=== PATIENT | male | born 1970 | race Caucasian/White ===

== ENCOUNTER 2018-08-22 07:17 | Emergency (ER) | payer OTHER ==
[~2018-08-22] VITALS: Ht 188 cm; Wt 128.1 kg
[2018-08-22 07:17] VITALS: BP 170/92
--- NOTE | 2018-08-22 07:36 | PHYS DOC ---
Adult General Chief Complaint Chief Complaint: INSECT BITE HPI HPI 47-year-old male presents with insect bite on his left dorsal hand. The patient states that he was seen in his recliner and reached down between the cushions yesterday afternoon and felt something bite him. He looked his hand and did not immediately see anything. Shortly while later, the patient noticed what looked like an insect bite nicole. He comes the ED today because he has had significant spreading of erythema around the area. The borders have been spreading and he is concerned for infection. The total area is now 4 cm in diameter. He has not noticed an abscess or fluctuant area. He denies fever or chills. He is not allergic to any antibiotics. He denies any other bites or concerns. Review of Systems Review of Systems Constitutional: Denies fever or chills [] Eyes: Denies change in visual acuity, redness, or eye pain [] HENT: Denies nasal congestion or sore throat [] Respiratory: Denies cough or shortness of breath [] Cardiovascular: No additional information not addressed in HPI [] GI: Denies abdominal pain, nausea, vomiting, bloody stools or diarrhea [] : Denies dysuria or hematuria [] Musculoskeletal: Denies back pain or joint pain [] Integument: Insect bite left hand[] Neurologic: Denies headache, focal weakness or sensory changes [] Endocrine: Denies polyuria or polydipsia [] All other systems were reviewed and found to be within normal limits, except as documented in this note. Allergies Allergies Allergies Coded Allergies Type Severity Reaction Last Updated Verified latex Allergy Unknown 08/22/18 Yes Physical Exam Physical Exam Constitutional: Well developed, well nourished, no acute distress, non-toxic appearance. [] HENT: Normocephalic, atraumatic, bilateral external ears normal, oropharynx moist, no oral exudates, nose normal. [] Eyes: PERRLA, EOMI, conjunctiva normal, no discharge. [] Neck: Normal range of motion, no tenderness, supple, no stridor. [] Cardiovascular:Heart rate regular rhythm, no murmur [] Lungs & Thorax: Bilateral breath sounds clear to auscultation [] Abdomen: Bowel sounds normal, soft, no tenderness, no masses, no pulsatile masses. [] Skin: 4 cm erythematous, warm area on the dorsum of the left hand. There is a small central area that is consistent with insect bite. No palpable abscess or area of fluctuance.[] Back: No tenderness, no CVA tenderness. [] Extremities: No tenderness, no cyanosis, no clubbing, ROM intact, no edema. [] Neurologic: Alert and oriented X 3, normal motor function, normal sensory function, no focal deficits noted. [] Psychologic: Affect normal, judgement normal, mood normal. [] EKG EKG [] Radiology/Procedures Radiology/Procedures [] Course & Med Decision Making Course & Med Decision Making Pertinent Labs and Imaging studies reviewed. (See chart for details) The patient's insect bite is concerning for infection. He has obvious erythema with warmth that is not present on the other hand. I will treat the patient with Keflex 1 g twice a day for 7 days. He is stable for discharge at this time. If his condition worsens such as the erythema spreading after being on the antibiotic, he will return to emergency room for consideration of IV antibiotics. [] Dragon Disclaimer Dragon Disclaimer This electronic medical record was generated, in whole or in part, using a voice recognition dictation system. Departure Departure: Referrals: PCP,REYNA (PCP) LARA RUFFIN DO Aug 22, 2018 07:36
[2018-08-22] MEDS ORDERED: CEPH-264 PO (07:41)
== END 2018-08-22 07:45 | disposition home or self-care (01) ==
LOC: ER 07:17
DX: S60.562A Insect bite (nonvenomous) of left hand, initial encounter (principal); L53.8 Other specified erythematous conditions; Z91.040 Latex allergy status; W57.XXXA Bitten or stung by nonvenomous insect and other nonvenomous arthropods, initial encounter; Y93.89 Activity, other specified; Y92.89 Other specified places as the place of occurrence of the external cause; Y99.8 Other external cause status
CPT/HCPCS: 99283

== ENCOUNTER 2018-12-28 23:01 | Emergency (ER) | payer SELFPAY ==
[~2018-12-28 23:01] MED LIST: CEPH-264 PO
--- NOTE | 2018-12-28 23:31 | ED.ADGEN ---
Past History Past Medical History: Hypertension Past Surgical History: No Surgical History Alcohol Use: None Drug Use: None Adult General Chief Complaint Chief Complaint ".. I got bad dental pain.. and now I think I got infection is some them.." HPI HPI Patient is a 48 year old male who presents with above hx and complaints of multiple dental caries with pain. Majority of painful dental caries are on the right upper and right lower teeth. Does have some findings of gingivitis. No trismus. Good bite. No neck adenopathy. No pointing abscess. Patient denies any history immunosuppression. Patient denies any history of travel or specific ill contacts. Patient tetanus is up-to-date. Patient does smoke. Patient has not followed up for a dental appointment as yet. No history of travel. No history of trauma. Review of Systems Review of Systems Constitutional: Denies fever or chills [] Eyes: Denies change in visual acuity, redness, or eye pain [] HENT: Denies nasal congestion or sore throat []complaints of dental pain Respiratory: Denies cough or shortness of breath [] Cardiovascular: No additional information not addressed in HPI [] GI: Denies abdominal pain, nausea, vomiting, bloody stools or diarrhea [] : Denies dysuria or hematuria [] Musculoskeletal: Denies back pain or joint pain [] Integument: Denies rash or skin lesions [] Neurologic: Denies headache, focal weakness or sensory changes [] Endocrine: Denies polyuria or polydipsia [] All other systems were reviewed and found to be within normal limits, except as documented in this note. Family History Family History Noncontributory Current Medications Current Medications Current Medications Medications (Trade) Dose Ordered Sig/Sharon Start Time Stop Time Status Last Admin Dose Admin Ceftriaxone Sodium (Rocephin Im) 1 gm 1X ONCE 12/28/18 23:45 12/28/18 23:46 DC 12/29/18 00:01 1 GM Clonidine HCl (Catapres Tts-2) 1 patch 1X ONCE 12/28/18 23:45 12/28/18 23:46 DC 12/29/18 00:02 1 PATCH Clonidine HCl (Catapres) 0.2 mg 1X ONCE 12/28/18 23:45 12/28/18 23:46 DC 12/29/18 00:05 0.2 MG Diphtheria/ Tetanus/Acell Pertussis (Boostrix) 0.5 ml ONCE ONCE 12/28/18 23:45 12/28/18 23:46 DC 12/29/18 00:07 0.5 ML Oxycodone/ Acetaminophen (Percocet 5/325) 2 tab 1X ONCE 12/28/18 23:45 12/28/18 23:46 DC 12/29/18 00:03 2 TAB Allergies Allergies Allergies Coded Allergies Type Severity Reaction Last Updated Verified latex Allergy Unknown 08/22/18 Yes Physical Exam Physical Exam Constitutional: In acute distress, non-toxic appearance. [] HENT: Normocephalic, atraumatic, bilateral external ears normal, oropharynx moist, no oral exudates, nose normal. []Multiple areas of dental decay and gingivitis Eyes: PERRLA, EOMI, conjunctiva normal, no discharge. [] Neck: Normal range of motion, no tenderness, supple, no stridor. [] Cardiovascular:Heart rate regular rhythm, no murmur [] Lungs & Thorax: Bilateral breath sounds equal apex with scattered wheezes auscultation [] Abdomen: Bowel sounds normal, soft, no tenderness, no masses, no pulsatile masses. Obese Skin: Warm, dry, no erythema, no rash. [] Back: No tenderness, no CVA tenderness. [] Extremities: No tenderness, no cyanosis, no clubbing, ROM intact, no edema. [] Neurologic: Alert and oriented X 3, normal motor function, normal sensory function, no focal deficits noted. [] Psychologic: Affect anxious, judgement normal, mood normal. [] Current Patient Data Vital Signs Vital Signs Date Time Temp Pulse Resp B/P (MAP) Pulse Ox O2 Delivery O2 Flow Rate FiO2 12/29/18 00:05 89 189/103 EKG EKG [] Radiology/Procedures Radiology/Procedures [] Course & Med Decision Making Course & Med Decision Making Pertinent Labs and Imaging studies reviewed. (See chart for details) Obstructive patient are meds will not fix his underlying problem. Must see a dentist. Take Tylenol and ibuprofen for pain. Start on Keflex 500x3 times a day. For severe pain may take Percocet up to 4 times a day. Patient encouraged him must follow-up with Dentist or oral surgeon. Encouraged patient to follow- up his elevated blood pressure with his primary. [] Final Impression Final Impression 1. Multiple Dental Caries 2. Gingivitis 3. Accelerated HTN- may elevated b/c dental pain and Pt has not taken his BP meds tonight Dragon Disclaimer Dragon Disclaimer This electronic medical record was generated, in whole or in part, using a voice recognition dictation system. Dragon Disclaimer This chart was dictated in whole or in part using Voice Recognition software in a busy, high-work load, and often noisy Emergency Department environment. It may contain unintended and wholly unrecognized errors or omissions. Dragon Disclaimer This chart was dictated in whole or in part using Voice Recognition software in a busy, high-work load, and often noisy Emergency Department environment. It may contain unintended and wholly unrecognized errors or omissions. Discharge Summary Visit Information Final Diagnosis Problems Medical Problems: (1) Hypertension Status: Acute (2) Pain due to dental caries Status: Acute Brief Hospital Course Allergies Allergies Coded Allergies Type Severity Reaction Last Updated Verified latex Allergy Unknown 08/22/18 Yes Vital Signs Vital Signs Date Time Temp Pulse Resp B/P (MAP) Pulse Ox O2 Delivery O2 Flow Rate FiO2 12/29/18 00:05 89 189/103 Brief Hospital Course Mr. Avila is a 48 old male who presented with dental pain. Discharge Information Condition at Discharge: Improved, Stable Disposition/Orders: D/C to Home Dischare Medications Current Medications Ceftriaxone Sodium (Rocephin Im) 1 gm 1X ONCE IM Last administered on at 00:01; Admin Dose 1 GM; Start 12/28/18 at 23:45; Stop 12/28/18 at 23:46; Status DC Diphtheria/ Tetanus/Acell Pertussis (Boostrix) 0.5 ml ONCE ONCE VAX IM Last administered on 12/29/18at 00:07; Admin Dose 0.5 ML; Start 12/28/18 at 23:45; Stop 12/28/18 at 23:46; Status DC Clonidine HCl (Catapres Tts-2) 1 patch 1X ONCE TD Last administered on at 00:02; Admin Dose 1 PATCH; Start 12/28/18 at 23:45; Stop 12/28/18 at 23:46; Status DC Clonidine HCl (Catapres) 0.2 mg 1X ONCE PO Last administered on 12/29/18at 00:05 ; Admin Dose 0.2 MG; Start 12/28/18 at 23:45; Stop 12/28/18 at 23:46; Status DC Oxycodone/ Acetaminophen (Percocet 5/325) 2 tab 1X ONCE PO Last administered on 12/29/18at 00:03; Admin Dose 2 TAB; Start 12/28/18 at 23:45; Stop 12/28/18 at 23: 46; Status DC Active Scripts Active Percocet 5-325 Mg Tablet (Oxycodone Hcl/Acetaminophen) 1 Each Tablet 1 Tab PO PRN Q6HRS PRN Keflex (Cephalexin) 500 Mg Capsule 500 Mg PO TID 14 Days Keflex (Cephalexin) 500 Mg Capsule 2 Cap PO BID 7 Days Discharge Summary Visit Information Final Diagnosis Problems Medical Problems: (1) Hypertension Status: Acute (2) Pain due to dental caries Status: Acute Brief Hospital Course Allergies Allergies Coded Allergies Type Severity Reaction Last Updated Verified latex Allergy Unknown 08/22/18 Yes Vital Signs Vital Signs Date Time Temp Pulse Resp B/P (MAP) Pulse Ox O2 Delivery O2 Flow Rate FiO2 12/29/18 00:05 89 189/103 Brief Hospital Course Mr. Avila is a 48 old [sex] who presented with [ ] Discharge Information Dischare Medications Current Medications Ceftriaxone Sodium (Rocephin Im) 1 gm 1X ONCE IM Last administered on at 00:01; Admin Dose 1 GM; Start 12/28/18 at 23:45; Stop 12/28/18 at 23:46; Status DC Diphtheria/ Tetanus/Acell Pertussis (Boostrix) 0.5 ml ONCE ONCE VAX IM Last administered on 12/29/18at 00:07; Admin Dose 0.5 ML; Start 12/28/18 at 23:45; Stop 12/28/18 at 23:46; Status DC Clonidine HCl (Catapres Tts-2) 1 patch 1X ONCE TD Last administered on at 00:02; Admin Dose 1 PATCH; Start 12/28/18 at 23:45; Stop 12/28/18 at 23:46; Status DC Clonidine HCl (Catapres) 0.2 mg 1X ONCE PO Last administered on 12/29/18at 00:05 ; Admin Dose 0.2 MG; Start 12/28/18 at 23:45; Stop 12/28/18 at 23:46; Status DC Oxycodone/ Acetaminophen (Percocet 5/325) 2 tab 1X ONCE PO Last administered on 12/29/18at 00:03; Admin Dose 2 TAB; Start 12/28/18 at 23:45; Stop 12/28/18 at 23: 46; Status DC Active Scripts Active Percocet 5-325 Mg Tablet (Oxycodone Hcl/Acetaminophen) 1 Each Tablet 1 Tab PO PRN Q6HRS PRN Keflex (Cephalexin) 500 Mg Capsule 500 Mg PO TID 14 Days Keflex (Cephalexin) 500 Mg Capsule 2 Cap PO BID 7 Days Discharge Summary Visit Information Final Diagnosis Problems Medical Problems: (1) Hypertension Status: Acute (2) Pain due to dental caries Status: Acute Brief Hospital Course Allergies Allergies Coded Allergies Type Severity Reaction Last Updated Verified latex Allergy Unknown 08/22/18 Yes Vital Signs Vital Signs Date Time Temp Pulse Resp B/P (MAP) Pulse Ox O2 Delivery O2 Flow Rate FiO2 12/29/18 00:05 89 189/103 Brief Hospital Course Mr. Avila is a 48 old [sex] who presented with [ ] Discharge Information Dischare Medications Current Medications Ceftriaxone Sodium (Rocephin Im) 1 gm 1X ONCE IM Last administered on at 00:01; Admin Dose 1 GM; Start 12/28/18 at 23:45; Stop 12/28/18 at 23:46; Status DC Diphtheria/ Tetanus/Acell Pertussis (Boostrix) 0.5 ml ONCE ONCE VAX IM Last administered on 12/29/18at 00:07; Admin Dose 0.5 ML; Start 12/28/18 at 23:45; Stop 12/28/18 at 23:46; Status DC Clonidine HCl (Catapres Tts-2) 1 patch 1X ONCE TD Last administered on at 00:02; Admin Dose 1 PATCH; Start 12/28/18 at 23:45; Stop 12/28/18 at 23:46; Status DC Clonidine HCl (Catapres) 0.2 mg 1X ONCE PO Last administered on 12/29/18at 00:05 ; Admin Dose 0.2 MG; Start 12/28/18 at 23:45; Stop 12/28/18 at 23:46; Status DC Oxycodone/ Acetaminophen (Percocet 5/325) 2 tab 1X ONCE PO Last administered on 12/29/18at 00:03; Admin Dose 2 TAB; Start 12/28/18 at 23:45; Stop 12/28/18 at 23: 46; Status DC Active Scripts Active Percocet 5-325 Mg Tablet (Oxycodone Hcl/Acetaminophen) 1 Each Tablet 1 Tab PO PRN Q6HRS PRN Keflex (Cephalexin) 500 Mg Capsule 500 Mg PO TID 14 Days Keflex (Cephalexin) 500 Mg Capsule 2 Cap PO BID 7 Days GABRIELA FERRER MD Dec 28, 2018 23:31
[2018-12-28] MEDS ORDERED: OXYC1TAB15 PO (23:41)
[2018-12-28] MEDS ORDERED: CEPH-264 PO (23:41)
[2018-12-28] MEDS ORDERED: cloNIDine TTS-2 1 PATCH PATCH TD ONE (23:45)
[2018-12-28] MEDS ORDERED: DIPHTH,PERTUSS(ACELL),TET TOX 0.5 ML DISP.SYRIN. VAX IM ONE (23:45)
[2018-12-28] MEDS ORDERED: cloNIDine HCL 0.1 MG TABLET PO ONE (23:45)
[2018-12-28] MEDS ORDERED: oxyCODONE/APAP 5/325 1 TAB TABLET PO ONE (23:45)
[2018-12-28] MEDS ORDERED: cefTRIAXone IM 1 GM VIAL IM ONE (23:45)
[2018-12-29 00:05] VITALS: BP 189/103
== END 2018-12-29 00:41 | disposition home or self-care (01) ==
LOC: ER 23:01
DX: K02.9 Dental caries, unspecified (principal); K05.10 Chronic gingivitis, plaque induced; I10 Essential (primary) hypertension; Z91.040 Latex allergy status
CPT/HCPCS: 90471; 90715; 96372; 99284; J0696

== ENCOUNTER 2019-01-08 10:57 | Emergency (ER) | payer OTHER ==
[~2019-01-08] VITALS: Ht 190.5 cm; Wt 136.1 kg
[~2019-01-08 10:57] MED LIST changes: +LISINOPRIL 10 MG TABLET PO ONE; +OXYC1TAB15 PO
[2019-01-08] MEDS ORDERED: ASPIRIN 81 MG TAB.CHEW PO ONE (11:15)
--- NOTE | 2019-01-08 11:43 | RAD ---
Single view of the chest. 01/08/2019 11:11 AM Indication: anxiety, nausea, chest pain Comparison: None Findings: Exam limited by body habitus. No definitive focal consolidation or infiltrate is seen. No pneumothorax or pleural effusion is identified. Heart size appears to be normal. IMPRESSION: Limited study without evidence of acute cardiopulmonary process. Electronically signed by: Dameon Suggs MD (01/08/2019 11:41 AM) [facility]
[2019-01-08 11:50] LABS: ALBUMIN 3.7 g/dL (3.4-5.0); CALCIUM 8.8 mg/dL (8.5-10.1); CREATININE 0.7 mg/dL (0.7-1.3); GFR 120.4; POTASSIUM 4.2 mmol/L (3.5-5.1); TOTAL BILIRUBIN 0.5 mg/dL (0.2-1.0); TOTAL PROTEIN 7.4 g/dL (6.4-8.2)
[2019-01-08 11:56] LABS: BASO % 0 % (0-3); EOS # 0.2 x10^3/uL (0.0-0.7); EOS % 2 % (0-3); HEMATOCRIT 42.8 % (39.0-53.0); LYMPH # 2.1 x10^3/uL (1.0-4.8); LYMPH % 25 % (24-48); MEAN CORPUSCULAR HEMOGLOBIN 32 pg (25-35); MEAN CORPUSCULAR HGB CONC 35 g/dL (31-37); MEAN CORPUSCULAR VOLUME 90 fL (79-100); MONO # 0.8 x10^3/uL (0.0-1.1); MONO % 9 % (0-9); NEUT # 5.6 x10^3uL (1.8-7.7); NEUT % 64 % (31-73); PLATELET COUNT 197 x10^3/uL (140-400); RED BLOOD COUNT 4.75 x10^6/uL (4.30-5.70); RED CELL DISTRIBUTION WIDTH 13.1 % (11.5-14.5); WHITE BLOOD COUNT 8.7 x10^3/uL (4.0-11.0)
--- NOTE | 2019-01-08 12:03 | PHYS DOC ---
Past History Past Medical History: GERD, Hypertension, Other Past Surgical History: Other Alcohol Use: None Drug Use: None, Opiates Social History Narrative: last dose percocet 01/06 PM Adult General Chief Complaint Chief Complaint: CHEST PAIN HPI HPI 48-year-old male presents with elevated blood pressure and chest pain. The patient has noticed intermittent chest pressure discomfort worse with exertion last few weeks. He does get diaphoretic and short of breath with this pain. It resolves with rest. The patient has been told in the past he has hypertension. He has not been taking medication for this for about 2 years. He was seen recently at this facility for another complaint and also had high blood pressure. He tells me at home with his high as 225 systolic. He tells me he is concerned about this at this point. He has never had a stress test or cardiac catheter. He has a 30+ year smoking history. He is not diabetic. Denies fever or chills. Review of Systems Review of Systems Constitutional: Denies fever or chills [] Eyes: Denies change in visual acuity, redness, or eye pain [] HENT: Denies nasal congestion or sore throat [] Respiratory: shortness of breath [] Cardiovascular: No additional information not addressed in HPI [] GI: Denies abdominal pain, nausea, vomiting, bloody stools or diarrhea [] : Denies dysuria or hematuria [] Musculoskeletal: Denies back pain or joint pain [] Integument: Denies rash or skin lesions [] Neurologic: Denies headache, focal weakness or sensory changes [] Endocrine: Denies polyuria or polydipsia [] All other systems were reviewed and found to be within normal limits, except as documented in this note. Current Medications Current Medications Current Medications Medications (Trade) Dose Ordered Sig/[facility] Start Time Stop Time Status Last Admin Dose Admin Aspirin (Children'S Aspirin) 324 mg 1X ONCE 01/08/19 11:15 01/08/19 11:16 DC 01/08/19 11:24 324 MG Allergies Allergies Allergies Coded Allergies Type Severity Reaction Last Updated Verified ibuprofen Allergy Intermediate hives 01/08/19 Yes latex Allergy Intermediate hives 01/08/19 Yes Physical Exam Physical Exam Constitutional: Well developed, well nourished, no acute distress, non-toxic appearance. [] HENT: Normocephalic, atraumatic, bilateral external ears normal, oropharynx moist, no oral exudates, nose normal. [] Eyes: PERRLA, EOMI, conjunctiva normal, no discharge. [] Neck: Normal range of motion, no tenderness, supple, no stridor. [] Cardiovascular:Heart rate regular rhythm, no murmur [] Lungs & Thorax: Bilateral breath sounds clear to auscultation [] Abdomen: Bowel sounds normal, soft, no tenderness, no masses, no pulsatile masses. [] Skin: Warm, dry, no erythema, no rash. [] Back: No tenderness, no CVA tenderness. [] Extremities: No tenderness, no cyanosis, no clubbing, ROM intact, no edema. [] Neurologic: Alert and oriented X 3, normal motor function, normal sensory function, no focal deficits noted. [] Psychologic: Affect normal, judgement normal, mood anxious. [] Current Patient Data Vital Signs Vital Signs Date Time Temp Pulse Resp B/P (MAP) Pulse Ox O2 Delivery O2 Flow Rate FiO2 01/08/19 11:00 98.1 71 20 98 Room Air Lab Results Laboratory Tests Test 01/08/19 11:14 Sodium Level 144 mmol/L (136-145) Potassium Level 4.2 mmol/L (3.5-5.1) Chloride Level 107 mmol/L (98-107) Carbon Dioxide Level 26 mmol/L (21-32) Anion Gap 11 (6-14) Blood Urea Nitrogen 17 mg/dL (8-26) Creatinine 0.7 mg/dL (0.7-1.3) Estimated GFR (Cockcroft-Gault) 120.4 BUN/Creatinine Ratio 24 (6-20) H Glucose Level 92 mg/dL (70-99) Calcium Level 8.8 mg/dL (8.5-10.1) Total Bilirubin 0.5 mg/dL (0.2-1.0) Aspartate Amino Transferase (AST) 27 U/L (15-37) Alanine Aminotransferase (ALT) 27 U/L (16-63) Alkaline Phosphatase 108 U/L (46-116) Total Protein 7.4 g/dL (6.4-8.2) Albumin 3.7 g/dL (3.4-5.0) Albumin/Globulin Ratio 1.0 (1.0-1.7) EKG EKG Sinus rhythm, rate 69, normal axis, no ST elevation or depression.[] Radiology/Procedures Radiology/Procedures [] Impressions: Single view of the chest. 01/08/2019 11:11 AM Indication: anxiety, nausea, chest pain Comparison: None Findings: Exam limited by body habitus. No definitive focal consolidation or infiltrate is seen. No pneumothorax or pleural effusion is identified. Heart size appears to be normal. IMPRESSION: Limited study without evidence of acute cardiopulmonary process. Electronically signed by: Dameon Arana MD (01/08/2019 11:41 AM) [facility] DICTATED AND SIGNED BY: DAMEON ARANA MD DATE: 01/08/19 1140 CC: LARA RUFFIN DO; PCP,NO Course & Med Decision Making Course & Med Decision Making Pertinent Labs and Imaging studies reviewed. (See chart for details) HEART score is 4. The patient's labs are unremarkable. His troponin is negative. His EKG has no acute ST elevations. I have given the patient 10 mg of lisinopril and 0.2 of clonidine for his hypertension. Believe the patient should be admitted for chest pain rule out. Discussed this with the patient and he has refused to be admitted. He is signing out AMA. I will give him a prescription for Lisinopril so that he at least something for his blood pressure. I have advised him that if he begins to feel that pain again or has any other symptoms, he should return to the hospital. [] Dragon Disclaimer Dragon Disclaimer This electronic medical record was generated, in whole or in part, using a voice recognition dictation system. Departure Departure: Impression: Primary Impression: Chest pain Additional Impression: Hypertension Disposition: 07 AGAINST MEDICAL ADVICE Condition: GUARDED Referrals: PCP,NO (PCP) Scripts Lisinopril (LISINOPRIL) 10 Mg Tablet 1 TAB PO DAILY for Hypertension, #30 TAB 0 Refills Prov: LARA RUFFIN DO 01/08/19 Problem Qualifiers Primary Impression: Chest pain Chest pain type: precordial pain Qualified Codes: R07.2 - Precordial pain Additional Impression: Hypertension Hypertension type: essential hypertension Qualified Codes: I10 - Essential ( primary) hypertension LARA RUFFIN DO Jan 08, 2019 12:03
[2019-01-08] MEDS ORDERED: cloNIDine HCL 0.1 MG TABLET PO ONE (12:15)
[2019-01-08] MEDS ORDERED: LISI10TA2 PO (12:28)
[2019-01-08 12:31] VITALS: BP 180/95
[2019-01-08] MEDS ORDERED: cloNIDine TTS-1 1 PATCH PATCH TD SCH (13:00)
--- NOTE | 2019-01-08 17:34 | EKG ---
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
== END 2019-01-08 12:55 | disposition left against medical advice (07) ==
LOC: ER 10:57
DX: I10 Essential (primary) hypertension (principal); R07.2 Precordial pain; K21.9 Gastro-esophageal reflux disease without esophagitis; Z87.891 Personal history of nicotine dependence; Z88.6 Allergy status to analgesic agent; Z91.040 Latex allergy status
CPT/HCPCS: 36415; 71045; 80053; 84484; 85025; 93005; 99284

== ENCOUNTER 2020-07-12 15:49 | Emergency (ER) | payer OTHER ==
[~2020-07-12] VITALS: Ht 190.5 cm; Wt 128.1 kg
[~2020-07-12 15:49] MED LIST changes: +LISI10TA2 PO; -LISINOPRIL 10 MG TABLET PO ONE
[2020-07-12 16:01] VITALS: BP 153/119
--- NOTE | 2020-07-12 16:05 | PHYS DOC ---
Past History Past Medical History: GERD, Hypertension, Other Past Surgical History: Other Alcohol Use: None Drug Use: None, Opiates General Adult EDM: Chief Complaint: CHEST PAIN HPI: HPI: 49-year-old male with significant history of hypertension, who presents for evaluation of chest pressure and dyspnea. Associated with "tunnel vision", nausea, and anxiety. He reports similar episode yesterday, and has had multiple intermittent episodes today. Saw his primary doctor this morning, prescribed Wellbutrin for suspected anxiety. Has not yet taken this medication. Review of records show negative nuclear stress test performed 09/2019. Review of Systems: Review of Systems: Gen: No fever, chills. Eyes: No blurred vision, diplopia. ENT: No nasal congestion, sore throat. CV: No palpitations. Reports chest pressure. Resp. No cough. Reports dyspnea. GI: No abd pain, vomiting. Reports nausea. : No dysuria, hematuria. Neuro: No ELDRIDGE, weakness. Reports lightheadedness. MSK: No myalgia, arthralgia, back pain. Skin: No acute rash or lesion. Heart Score: HEART Score for Chest Pain: HEART Score for Chest Pain Response (Comments) Value History Slighlty/Non-Suspicious 0 ECG Normal 0 Age >45 - < 65 1 Risk Factors >3 Risk Factors or Hx CAD 2 Troponin < Normal Limit 0 Total 3 Risk Factors: Risk Factors: DM, Current or recent (<one month) smoker, HTN, HLP, family history of CAD, obesity. Risk Scores: Score 0 - 3: 2.5% MACE over next 6 weeks - Discharge Home Score 4 - 6: 20.3% MACE over next 6 weeks - Admit for Clinical Observation Score 7 - 10: 72.7% MACE over next 6 weeks - Early Invasive Strategies Allergies: Allergies: Allergies Coded Allergies Type Severity Reaction Last Updated Verified ibuprofen Allergy Intermediate hives 01/08/19 Yes latex Allergy Intermediate hives 01/08/19 Yes Physical Exam: PE: Gen: NAD. Well nourished. Head: NC/AT. Eyes: No scleral icterus. No conjunctival injection. PERRL. ENT: MMM. Posterior OP clear. Neck: Supple. NT. No JVD. CV: RRR. Peripheral pulses intact. Resp: CTAB. No increased work of breathing. Abd: Soft. NT. ND. MSK: No peripheral cyanosis. No edema. No calf tenderness or asymmetry. Neuro: A&Ox3. Strength & sensation grossly intact throughout. No dysmetria. No aphasia or dysarthria. No visual field cut. No facial asymmetry. NIH stroke score 0. Skin. Warm. Dry. No acute rash. Psych: Appropriate mood & affect. EKG: EKG: EKG at 1552. Sinus rhythm. Heart rate 89. Occasional PVC. No STEMI. Interpreted by me. Radiology/Procedures: Radiology/Procedures: PROCEDURE: CHEST AP ONLY Single view of the chest. 07/12/2020 3:56 PM Indication: Reason: CP / Spl. Instructions: / History: Comparison: Chest radiograph January 08, 2009 Findings: There is no focal consolidation. There is no pleural effusion or pneumothorax. There is borderline cardiomegaly. No acute osseous abnormalities are seen. Impression: 1.No evidence of acute cardiopulmonary process. 2. Borderline cardiomegaly Electronically signed by: Dameon Suggs MD (07/12/2020 4:22 PM) [id number] Course & Med Decision Making: Course & Med Decision Making Pertinent Labs and Imaging studies reviewed. (See chart for details) In summary, 49M p/w CP/SOA over last day or so. Neg nuc stress 09/2019. HDS. Unremarkable exam. CXR clear. Labs unremarkable including normal trop/BNP. Remains well appearing and nontoxic. I considered but do not suspect ACS, PE, d issection. HEART score 3, suitable for outpatient F/U. Will DC home with cards F/U. Return precautions given. Advised starting his Rx wellbutrin by PMD. Tyler Disclaimer: Tyler Disclaimer: This electronic medical record was generated, in whole or in part, using a voice recognition dictation system. Departure Departure: Impression: Primary Impression: Chest pain Disposition: HOME/RESIDENCE PRIOR TO ADM Condition: STABLE Referrals: KATTY DOBBS (PCP) Patient Instructions: Chest Pain (Nonspecific)-Brief Additional Instructions: Your cardiac workup in the ED today was unremarkable. Please follow up with cardiology for continued outpatient workup. Start taking your previously prescribed wellbutrin. Return to the ED if you develop new or worsening symptoms. Justification of Admission: Justification of Admission: Justification of Admission Dx: N/A DONELL DOUGLAS DO Jul 12, 2020 16:05
[2020-07-12] MEDS ORDERED: diazePAM 2 MG TABLET. PO ONE (16:15)
--- NOTE | 2020-07-12 16:24 | RAD ---
Single view of the chest. 07/12/2020 3:56 PM Indication: Reason: CP / Spl. Instructions: / History: Comparison: Chest radiograph January 08, 2009 Findings: There is no focal consolidation. There is no pleural effusion or pneumothorax. There is borderline cardiomegaly. No acute osseous abnormalities are seen. Impression: 1.No evidence of acute cardiopulmonary process. 2. Borderline cardiomegaly Electronically signed by: Dameon Suggs MD (07/12/2020 4:22 PM) [id number]
[2020-07-12 16:27] LABS: BASO % 1 % (0-3); EOS # 0.1 x10^3/uL (0.0-0.7); EOS % 2 % (0-3); HEMOGLOBIN 14.2 g/dL (13.0-17.5); LYMPH # 2.3 x10^3/uL (1.0-4.8); LYMPH % 25 % (24-48); MEAN CORPUSCULAR HEMOGLOBIN 32 pg (25-35); MEAN CORPUSCULAR HGB CONC 35 g/dL (31-37); MEAN CORPUSCULAR VOLUME 94 fL (79-100); MONO # 0.8 x10^3/uL (0.0-1.1); MONO % 9 % (0-9); NEUT # 5.8 x10^3uL (1.8-7.7); NEUT % 64 % (31-73); PLATELET COUNT 157 x10^3/uL (140-400); RED BLOOD COUNT 4.39 x10^6/uL (4.30-5.70); RED CELL DISTRIBUTION WIDTH 13.4 % (11.5-14.5); WHITE BLOOD COUNT 9.1 x10^3/uL (4.0-11.0)
[2020-07-12 16:30] LABS: CALCIUM 8.7 mg/dL (8.5-10.1); CREATININE 1.1 mg/dL (0.7-1.3); GFR 71.1; POTASSIUM 3.7 mmol/L (3.5-5.1)
[2020-07-12 16:42] LABS: ALBUMIN 3.5 g/dL (3.4-5.0); ALBUMIN/GLOBULIN RATIO 0.9 (1.0-1.7); MAGNESIUM 1.8 mg/dL (1.8-2.4); TOTAL BILIRUBIN 0.2 mg/dL (0.2-1.0); TOTAL PROTEIN 7.3 g/dL (6.4-8.2)
--- NOTE | 2020-07-12 16:46 | EKG ---
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
== END 2020-07-12 16:58 | disposition home or self-care (01) ==
LOC: ER 15:49
DX: R07.89 Other chest pain (principal); I10 Essential (primary) hypertension; K21.9 Gastro-esophageal reflux disease without esophagitis; F41.9 Anxiety disorder, unspecified; Z88.6 Allergy status to analgesic agent; Z91.040 Latex allergy status
CPT/HCPCS: 36415; 71045; 80053; 83735; 83880; 84484; 85025; 93005; 99285-25

== ENCOUNTER 2021-05-22 00:25 | Emergency (ER) | payer OTHER ==
[~2021-05-22] VITALS: Ht 188 cm; Wt 147.7 kg
[~2021-05-22 00:25] MED LIST changes: +LISI10TA16 PO; -LISI10TA2 PO
--- NOTE | 2021-05-22 01:02 | PHYS DOC ---
Past History Past Medical History: GERD, Hypertension, Other Past Surgical History: No Surgical History Alcohol Use: None Drug Use: None, Opiates Adult General Chief Complaint Chief Complaint: COUGH HPI HPI Patient is a 50-year-old male who presents with a chief complaint of nasal congestion and cough that has come on over the last week. Denies any recent traumas, travels, known ill contacts, fevers, chest pain, shortness of breath, abdominal pain, nausea, vomiting, dysuria, hematuria, blood in the stool or diarrhea. Denies any dyspnea on exertion, orthopnea, PND or edema. States she is trying some [id number] medicines with minimal relief. States he has not seen his primary care physician yet. States he is able to eat and drink without issue. States he is making urine and stool without issue. Review of Systems Review of Systems Review of systems otherwise unremarkable except noted in HPI Allergies Allergies Allergies Coded Allergies Type Severity Reaction Last Updated Verified ibuprofen Allergy Intermediate hives 01/08/19 Yes latex Allergy Intermediate hives 01/08/19 Yes Physical Exam Physical Exam Constitutional: Well developed, well nourished, no acute distress, non-toxic appearance. [] HENT: Normocephalic, atraumatic, oropharynx moist, no oral exudates, Eyes: conjunctiva normal, no discharge. [] Neck: Normal range of motion, no tenderness, supple, no stridor, no lymphadenopathy. [] Cardiovascular:Heart rate regular rhythm, no murmur [] Lungs & Thorax: Mild bilateral global rhonchi Skin: Warm, dry, no erythema, no rash. [] Extremities: No tenderness, ROM intact, no edema. [] Neurologic: Alert and oriented X 3, n no focal deficits noted. [] Psychologic: Affect normal, judgement normal, mood normal. [] Current Patient Data Vital Signs Vital Signs Date Time Temp Pulse Resp B/P (MAP) Pulse Ox O2 Delivery O2 Flow Rate FiO2 05/22/21 00:30 98.1 78 16 168/89 (115) 96 Room Air EKG EKG [] Radiology/Procedures Radiology/Procedures Imaging with no obvious acute consolidation [] Heart Score C/O Chest Pain: No Risk Factors: Risk Factors: DM, Current or recent (<one month) smoker, HTN, HLP, family history of CAD, obesity. Risk Scores: Risk Factors: DM, Current or recent (<one month) smoker, HTN, HLP, family history of CAD, obesity. Course & Med Decision Making Course & Med Decision Making Patient is a 50-year-old male presents with cough and nasal congestion Vital signs notable for hypertension. Physical exam noted above. Given dexamethasone, doxycycline and breathing treatment for COPD exacerbation Given cough syrup for the emergency department. Discussed all findings with patient and COPD exacerbations. Patient stated that he quit smoking a week ago and has not had 1 since because he is tired of the cough and the mucus. Advised to follow-up in the morning with his primary care physician. Patient stated he should have told his PCP about it few days ago when he was there. Gave strict return precautions to the ED. Patient grateful, verbalized understanding and agreed with plan of discharge. [] Dragon Disclaimer Dragon Disclaimer This electronic medical record was generated, in whole or in part, using a voice recognition dictation system. Departure Departure: Impression: Primary Impression: Cough Additional Impressions: Nasal congestion COPD exacerbation Disposition: HOME / SELF CARE / HOMELESS Condition: GOOD Referrals: KATTY DOBBS (PCP) Patient Instructions: Chronic Obstructive Pulmonary Disease, Chronic Obstructive Pulmonary Disease Exacerbation, Pneumomediastinum Additional Instructions: Thank you for coming into the emergency department tonight and allowing us to take care of you. Please read all of the attached information very closely to go back over what we discussed. Please take your antibiotics as prescribed and until gone. Please use your albuterol inhaler as prescribed. Please call your primary care physician first thing in the morning to update on ED visit and set up a follow-up within the next week or so. Please come back to the emergency department immediately with new or concerning symptoms as discussed. Scripts Doxycycline Hyclate (DOXYCYCLINE HYCLATE) 100 Mg Tablet 1 TAB PO BID for copd exacerbation, #13 TAB Prov: HEYDI GILL MD 05/22/21 Albuterol Sulfate (PROAIR HFA INHALER) 8.5 Gm Hfa.aer.ad 2 PUFF IH PRN Q4-6HRS PRN for wheezing for 21 Days, #1 INHALER 0 Refills Prov: HEYDI GILL MD 05/22/21 Problem Qualifiers HEYDI GILL MD May 22, 2021 01:02
[2021-05-22] MEDS ORDERED: DEXAMETHASONE 4 MG TABLET PO ONE (01:15)
[2021-05-22] MEDS ORDERED: IPRATRPIUM/ALBUTEROL 0.5/2.5MG 3 ML NEBU. NEB ONE (01:15)
[2021-05-22] MEDS ORDERED: ALBU2.5V8 IH (01:15)
[2021-05-22] MEDS ORDERED: DOXYCYCLINE HYCLATE 100 MG TABLET PO ONE (01:15)
[2021-05-22] MEDS ORDERED: DOXY100T PO (01:15)
[2021-05-22] MEDS ORDERED: guaiFENesin/CODEINE 100mg/10mg 5 ML LIQUID PO PRN (01:15)
--- NOTE | 2021-05-22 01:18 | RAD ---
XR CHEST 2V INDICATION: Reason: chest congestion / Spl. Instructions: / History: . COMPARISON STUDY: None. FINDINGS: Lungs: Normal lung volume. No pulmonary mass or consolidation. The tracheobronchial tree and hilar st ructures are normal. Pleura: No pleural effusion or pneumothorax. Heart and Mediastinum: The cardiomediastinal silhouette is normal. The great vessels of the thorax ar e normal. Bones and Soft Tissues: Degenerative changes of the spine. IMPRESSION: No acute cardiopulmonary process. Electronically signed by: Elmer Soriano MD (05/22/2021 1:16 AM) [facility]
[2021-05-22 01:44] VITALS: BP 154/71
== END 2021-05-22 01:50 | disposition home or self-care (01) ==
LOC: ER 00:25
DX: J44.1 Chronic obstructive pulmonary disease with (acute) exacerbation (principal); K21.9 Gastro-esophageal reflux disease without esophagitis; I10 Essential (primary) hypertension; Z88.6 Allergy status to analgesic agent; Z91.040 Latex allergy status
CPT/HCPCS: 71046; 94640; 99284; J8540

== ENCOUNTER → 2021-07-03 | Outpatient (CLI) | payer OTHER ==
[~2021-07-03] MED LIST changes: +ALBU2.5V8 IH; +DOXY100T PO
--- NOTE | 2021-07-03 09:04 | RAD ---
EXAM: LUMBAR SPINE 3 VIEWS. HISTORY: Low back pain and left lower extremity radiculopathy. COMPARISON: None. FINDINGS: There is 4 mm retrolisthesis at L2-3. There is minimal grade 1 anterolisthesis at L4-5. Portillo tebral body heights are maintained, and no fractures are identified. Degenerative disc disease is mil d at and L2-3 and L4-5. Facet osteoarthritis is moderate to severe from L4 through S1. Calculi in the right renal lower pole measure up to 6 mm. Atherosclerotic calcifications are noted. IMPRESSION: 1. Mild retrolisthesis at L2-3. Slight anterolisthesis at L4-5. Mild degenerative disc disease at eac h level. 2. Right lower pole renal calculi measure up to 6 mm. Electronically signed by: Bev Ding MD (07/03/2021 9:01 AM) [id number]
== END ==
LOC: RAD 07:41
PROVIDERS: ATTEND Family Medicine
DX: M43.16 Spondylolisthesis, lumbar region (principal); M51.16 Intervertebral disc disorders with radiculopathy, lumbar region; M47.817 Spondylosis without myelopathy or radiculopathy, lumbosacral region; N20.0 Calculus of kidney; I70.90 Unspecified atherosclerosis; M54.5 Low back pain; Z68.41 Body mass index [BMI] 40.0-44.9, adult
CPT/HCPCS: 72100

== ENCOUNTER 2021-11-15 05:18 | Emergency (ER) | payer OTHER ==
[~2021-11-15] VITALS: Ht 188 cm; Wt 147.7 kg
[2021-11-15 05:18] VITALS: BP 153/72
--- NOTE | 2021-11-15 05:22 | PHYS DOC ---
Past History Past Medical History: GERD, Hypertension, Other (GABRIELA FERRER MD) Past Surgical History: No Surgical History (GABRIELA FERRER MD) Alcohol Use: None Drug Use: None, Opiates (GABRIELA FERRER MD) General Adult HPI: HPI: ".. 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 And was looking over my right shoulder when it felt like a pop my neck... Since then is is gotten more and more stiff and I cannot turn my head or move my arms without spasms in my neck. I could not even work tonight at [facility] [employer]" Patient is a 50 year old male who presents with above hx and complaints rt. neck pain . Patient reports severe muscle spasm to extend right-sided neck. Patient has pain that runs into both arms. Patient states that any movement exacerbates the pain in his neck. Patient denies any recent travel. No specific ill contacts. No history of fever chills. No history immunosuppression. Initial injury started with his work at [employer]. Pt. follows with [facility]. (GABRIELA FERRER MD) Review of Systems: Review of Systems: Constitutional: Denies fever or chills Eyes: Denies change in visual acuity HENT: Complains of severe neck pain. Respiratory: Denies cough or shortness of breath Cardiovascular: Denies chest pain or edema GI: Denies abdominal pain, nausea, vomiting, bloody stools or diarrhea : Denies dysuria Musculoskeletal: Denies back pain or joint pain Integument: Denies rash Neurologic: Denies headache, focal weakness or sensory changes Endocrine: Denies polyuria or polydipsia Lymphatic: Denies swollen glands Psychiatric: Denies depression or anxiety (GABRIELA FERRER MD) Family History: Family History: Noncontributory to presentation. (GABRIELA FERRER MD) Current Medications: Current Meds: See nursing for home meds (GABRIELA FERRER MD) Allergies: Allergies: Allergies Coded Allergies Type Severity Reaction Last Updated Verified ibuprofen Allergy Intermediate hives 01/08/19 Yes latex Allergy Intermediate hives 01/08/19 Yes (GABRIELA FERRER MD) Physical Exam: PE: Constitutional:in acute distress, non-toxic appearance. [] HENT: Normocephalic, atraumatic, bilateral external ears normal, oropharynx moist, no oral exudates, nose normal. [] Eyes: PERRLA, EOMI, conjunctiva normal, no discharge. [] Neck: Limited range of motion, bilateral tenderness, supple, no stridor. [] Has more muscle spasms on right trapezius area. Cardiovascular:Heart rate regular rhythm, no murmur [] Lungs & Thorax: Bilateral breath sounds clear to auscultation [] Abdomen: Bowel sounds normal, soft, no tenderness, no masses, no pulsatile masses. Obese. Skin: Warm, dry, no erythema, no rash. [] Back: No tenderness, no CVA tenderness. [] Extremities: No tenderness, no cyanosis, no clubbing, ROM intact, no edema. [] Neurologic: Alert and oriented X 3, normal motor function, normal sensory function, no focal deficits noted. DTRs +2 patella and brachial.. Complains of pain radiating down both arms more on right than left. Psychologic: Affect anxious, judgement normal, mood normal. [] (GABRIELA FERRER MD) EKG: EKG: [] (GABRIELA FERRER MD) Radiology/Procedures: Radiology/Procedures: [] (GABRIELA FERRER MD) Radiology/Procedures: [place] [address] IMAGING REPORT Signed PATIENT: ROYER SANCEHZ ACCOUNT: [id number] : 1970 LOCATION: ER AGE: 50 SEX: M EXAM STATUS: REG ER ORD. PHYSICIAN: GABRIELA FERRER MD REASON: Torticollis, severe neck pain PROCEDURE: CT CERVICAL SPINE WO CONTRAST Exam Date: 11/15/2021 5:[address] CERVICAL SPINE WO Indication: Reason: Torticollis, severe neck pain / Spl. Instructions: / History: . TECHNIQUE: CT scan of the cervical spine was performed without intravenous contrast. Coronal and sagittal reconstructed images were reviewed as well. One or more of the following dose reduction techniques were utilized: *Automated exposure control (AEC) *Adjustment of mA and/or kV according to patient size *Use of iterative reconstruction technique *CT scan done according to ALARA, or ALARA/IMAGE GENTLY FINDINGS: There is straightening of the cervical spine without spondylolisthesis. The vertebral body heights are maintained without acute fracture. Mild to moderate multilevel degenerative changes are noted. No severe osseous central canal stenosis is seen. 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 The cervicomedullary junction appears normal. Atlanto-axial interval is within normal limits. The prevertebral soft tissues and visualized lung apices are normal. IMPRESSION: No acute fracture. Degenerative changes noted. Electronically signed by: Svetlana Morgan MD (11/15/2021 6:54 AM) [id number] DICTATED AND SIGNED BY: SVETLANA MORGAN MD DATE: 11/15/21 0650 CC: DESTINY TURNER MD; GABRIELA FERRER MD; KATTY DOBBS ~MTH0 0 (DESTINY TURNER MD) Heart Score: C/O Chest Pain: N/A Risk Factors: Risk Factors: DM, Current or recent (<one month) smoker, HTN, HLP, family history of CAD, obesity. Risk Scores: Score 0 - 3: 2.5% MACE over next 6 weeks - Discharge Home Score 4 - 6: 20.3% MACE over next 6 weeks - Admit for Clinical Observation Score 7 - 10: 72.7% MACE over next 6 weeks - Early Invasive Strategies (GABRIELA FERRER MD) C/O Chest Pain: No (DESTINY TURNER MD) Course & Med Decision Making: Course & Med Decision Making Pertinent Labs and Imaging studies reviewed. (See chart for details) Follow up with work comp. Follow up with primary. Use Ice packs. Take Tylenol and Ibuprofen for caceres. Take Flexeril 10 up 3 x day for muscle spasms. Pt, endorsed to Dr. Turner at shift change. CT pending. Impression: 1. Torticollis 2. Cervical neuropathy [] (GABRIELA FERRER MD) Dragon Disclaimer: Dragon Disclaimer: This electronic medical record was generated, in whole or in part, using a voice recognition dictation system. (GABRIELA FERRER MD) Departure Departure: Disposition: HOME / SELF CARE / HOMELESS Condition: STABLE Referrals: KATTY DOBBS (PCP) Patient Instructions: Muscle Cramps Scripts Cyclobenzaprine Hcl (CYCLOBENZAPRINE HCL) 10 Mg Tablet 1 TAB PO TID PRN for MUSCLE SPASMS for 7 Days, #20 TAB Prov: DESTINY TURNER MD 11/15/21 Meloxicam (MELOXICAM) 15 Mg Tablet 1 TAB PO DAILY PRN for MUSCLE SPASMS for 30 Days, #20 TAB 0 Refills Prov: DESTINY TURNER MD 11/15/21 Cyclobenzaprine Hcl (CYCLOBENZAPRINE HCL) 10 Mg Tablet 10 MG PO TID for muscle spasms, #30 TAB Prov: GABRIELA FERRER MD 11/15/21 Dragon Disclaimer This chart was dictated in whole or in part using Voice Recognition software in a busy, high-work load, and often noisy Emergency Department environment. It may contain unintended and wholly unrecognized errors or omissions. (GABRIELA FERRER MD) Dragon Disclaimer This chart was dictated in whole or in part using Voice Recognition software in a busy, high-work load, and often noisy Emergency Department environment. It may contain unintended and wholly unrecognized errors or omissions. (GABRIELA FERRER MD) GABRIELA FERRER MD Nov 15, 2021 05:22 DESTINY TURNER MD Nov 15, 2021 07:27
[2021-11-15] MEDS ORDERED: MORPHINE SULFATE 10 MG/ML SYRINGE. SQ ONE (05:45)
[2021-11-15] MEDS ORDERED: KETOROLAC 60 MG/2 ML VIAL. IM ONE (05:45)
[2021-11-15] MEDS ORDERED: ORPHENADRINE CITRATE 60 MG/2 ML VIAL. IM ONE (05:45)
[2021-11-15] MEDS ORDERED: methylPREDNISolone ACETATE 40 MG/ML VIAL. IM ONE (05:45)
[2021-11-15] MEDS ORDERED: CYCL10TA19 PO ×2 (05:51→07:26)
--- NOTE | 2021-11-15 06:56 | RAD ---
Exam Date: 11/15/2021 5:[address] CERVICAL SPINE WO Indication: Reason: Torticollis, severe neck pain / Spl. Instructions: / History: . TECHNIQUE: CT scan of the cervical spine was performed without intravenous contrast. Coronal and sa gittal reconstructed images were reviewed as well. One or more of the following dose reduction techn iques were utilized: *Automated exposure control (AEC) *Adjustment of mA and/or kV according to patient size *Use of iterative reconstruction technique *CT scan done according to ALARA, or ALARA/IMAGE GENTLY FINDINGS: There is straightening of the cervical spine without spondylolisthesis. The vertebral body heights a re maintained without acute fracture. Mild to moderate multilevel degenerative changes are noted. N o severe osseous central canal stenosis is seen. 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 The cervicomedullary junction appears nor mal. Atlanto-axial interval is within normal limits. The prevertebral soft tissues and visualized ольга ng apices are normal. IMPRESSION: No acute fracture. Degenerative changes noted. Electronically signed by: Andres Morgan MD (11/15/2021 6:54 AM) [id number]
[2021-11-15] MEDS ORDERED: MELO15TA23 PO (07:26)
== END 2021-11-15 07:49 | disposition home or self-care (01) ==
LOC: ER 05:18
DX: M43.6 Torticollis (principal); G54.2 Cervical root disorders, not elsewhere classified; K21.9 Gastro-esophageal reflux disease without esophagitis; I10 Essential (primary) hypertension; Z88.6 Allergy status to analgesic agent; Z91.040 Latex allergy status
CPT/HCPCS: 72125; 96372; 99284; J1030; J1885; J2270; J2360

== ENCOUNTER 2022-02-13 18:46 | Emergency (ER) | payer OTHER ==
[~2022-02-13] VITALS: Ht 188 cm; Wt 152.9 kg
[~2022-02-13 18:46] MED LIST changes: +CYCL10TA19 PO; +MELO15TA23 PO
[2022-02-13 19:40] VITALS: BP 172/80
[2022-02-13] MEDS ORDERED: IV NORMAL SALINE 1,000ML 1,000 ML IV ONE (20:45)
[2022-02-13] MEDS ORDERED: diphenhydrAMINE 50 MG/ML VIAL IVP ONE (20:45)
--- NOTE | 2022-02-13 21:12 | RAD ---
CT Head W/O Contrast: History: Reason: HEADACHE / Spl. Instructions: / History: Comparison: none Axial images were obtained without contrast. The busby and white matter appears normal and symmetrical for the patients age. There is no mass effe ct, extraaxial fluid collections or hydrocephalus. There is no gross bleed. There is no focal loss of busby-white matter distinction to suggest acute ischemia, i.e. stroke. Impression: No acute findings. RS Compliance Statement: One or more of the following individualized dose reduction techniques were utilized for this examinat ion: 1. Automated exposure control 2. Adjustment of the mA and/or kV according to patient size 3. Use of iterative reconstruction technique Electronically signed by: Shiva Pineda III, MD (02/13/2022 9:10 PM) [facility]
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
== END 2022-02-13 22:24 | disposition home or self-care (01) ==
LOC: ER 18:46
DX: G44.209 Tension-type headache, unspecified, not intractable (principal); K21.9 Gastro-esophageal reflux disease without esophagitis; I10 Essential (primary) hypertension; Z91.040 Latex allergy status; Z88.6 Allergy status to analgesic agent
CPT/HCPCS: 70450; 96361; 96374; 99284; J1200; J7030